=== PATIENT | female | born 1995 | race Caucasian/White ===

== ENCOUNTER 2022-01-02 17:17 | Emergency (ER) | payer BC, SELFPAY ==
[2022-01-02 17:48] VITALS: BP 158/86; PULSE 80; RESP 18; TEMP 36.7; O2SAT 98
--- NOTE | 2022-01-02 18:48 | ED.FEMALEGU ---
HPI - Female Genitourinary General Chief complaint: Urogenital-Female Stated complaint: extreme period Time Seen by Provider: 01/02/22 18:48 Source: patient and RN notes reviewed Mode of arrival: ambulatory Limitations: no limitations History of Present Illness HPI Narrative: 26-year-old female presents with concern for heavy menstrual bleeding. Reports she started her period yesterday and has gone through 4 super plus tampons and 5 hours. She reports it is not always necessarily blood as much as sometimes it is clots that are making her go through tampons quickly. She reports her period is 2 days early, denies known . She denies abdominal pain, fever, fatigue, general malaise. She reports having a abnormal Pap smear in the past for which she needed to follow-up in 1 year with her eyeglass lens cutter but has not been able to because of Covid. She is not on control. MD elicited complaint: vaginal bleeding Related Data Home Medications Medication Instructions Recorded Confirmed buspirone 10 mg PO BID 01/02/22 01/02/22 sertraline 200 mg PO DAILY 01/02/22 01/02/22 trazodone 100 mg PO HS PRN 01/02/22 01/02/22 Allergies Allergy/AdvReac Type Severity Reaction Status Date / Time No Known Allergies Allergy Unverified 07/14/18 18:18 Review of Systems Review of Systems: CONSTITUTIONAL: Denies malaise, chills, sweats, or fever. CARDIOVASCULAR: Denies chest pain, palpitations, or edema. RESPIRATORY: Denies cough or dyspnea. GASTROINTESTINAL: Denies abdominal pain, nausea, vomiting, diarrhea GENITOURINARY: Denies dysuria, frequency, urgency, suprapubic pressure. Denies flank pain or hematuria. Reports heavy menstrual period SKIN: Denies rash or itching. MUSCULOSKELETAL: Denies back pain or myalgia. All systems reviewed & are unremarkable except as noted in HPI and below PMFSH Comments At time of signature, agree with nursing past medical, surgical, social and family history. There is no relevant family history pertinent to the presenting complaint Exam Narrative: GENERAL: Well-appearing, well-nourished, and in no acute distress. HEAD: Normocephalic. EYES: PERRLA, conjunctivae clear. NECK: Supple. No lymphadenopathy CHEST: Clear to auscultation. No respiratory distress. HEART: Regular rate and rhythm. SKIN: Warm, dry, no rash. NEURO: Alert and oriented x3. PSYCH: Normal mood and affect Course Course Emergency Course: Patient is aware of diagnosis, understands and agrees to treatment plan. Anticipatory guidance given. Patient agrees to follow-up as directed and is aware of reasons to seek care at the emergency department. Portions of this record may have been created with voice recognition software Level of Care: Express Care Visit Vital Signs Vital signs: Vital Signs Temperature 98.1 F 01/02/22 17:48 Pulse Rate 80 01/02/22 17:48 Respiratory Rate 18 01/02/22 17:48 Blood Pressure 158/86 H 01/02/22 17:48 Pulse Oximetry 98 01/02/22 17:48 Temperature 98.1 F 01/02/22 17:48 Pulse Rate 80 01/02/22 17:48 Respiratory Rate 18 01/02/22 17:48 Blood Pressure 158/86 H 01/02/22 17:48 Pulse Oximetry 98 01/02/22 17:48 Reviewed. MDM - Female Genitourinary MDM Narrative Medical decision making narrative: Exam findings show no acute concerns or changes; patient is non-toxic appearing and is in no distress. Patient is appropriate for outpatient treatment and follow-up. Differential Diagnosis Differential diagnosis: Likely bacterial vaginosis, ovarian cyst, vaginitis, ruptured ovarian cyst and dysmenorrhea Critical Care Time Critical Care Time Critical Care Time: No Discharge Plan Discharge Clinical Impression: Menorrhagia Qualifiers: Menorrhagia type: with regular cycle Qualified Code(s): N92.0 - Excessive and frequent menstruation with regular cycle Patient Disposition: Home, Self-Care Condition: Stable Instructions: Menorrhagia (ED) Additional Instructions: 1) Ple
== END 2022-01-02 19:09 | disposition home or self-care (01) ==
PROVIDERS: Emergency Provider Nurse Practitioner
DX: N92.0 Excessive and frequent menstruation with regular cycle (principal); F41.9 Anxiety disorder, unspecified; F32.A Depression, unspecified
CPT/HCPCS: 99203; G0463